=== PATIENT | male | born 1940 | race Caucasian/White ===

== ENCOUNTER 2022-08-07 09:00 | Outpatient (NON) | payer MEDICARE, SELFPAY | END 2022-08-07 09:01 | disposition home or self-care (01) | LOC: ANHLAB 08-09 12:05 | PROVIDERS: PCP Internal Medicine; Visit Provider Nurse Practitioner | DX: D49.2 Neoplasm of unspecified behavior of bone, soft tissue, and skin (principal) | CPT/HCPCS: 88305 ==